=== PATIENT | female | born 1945 | race Caucasian/White ===

== ENCOUNTER → 2017-03-23 | Outpatient (CLI) | payer OTHER ==
[~2017-03-23] MED LIST: ASPIRIN81 M2 PO; ATENOLOL 50MG T50 M1 PO; GLUCOPHAGE1000 MG PO; HYDROCHLOROTHIA25 M2 PO; IBUPROFEN 800800 M1 PO; LEVOTHYROXIN0.125 M1 PO; LIPITOR 20 MG T20 M1 PO; LOTRISONE CREAM15 GM TOP; NEURONTIN 300300 M1 PO; OMEPRAZOLE40 MG PO; POTASSIUM20 PO; SORINE 80 MG TA80 M1 PO; VENLAFAXINE HC100 MG PO; XARELTO20 MG PO
[2017-03-23 08:56] LABS: INR 1.2; PROTIME 12.1 Seconds (9.20-11.50)
== END ==
LOC: M.LAB 06:30
PROVIDERS: Anesthesiology
DX: Z01.812 Encounter for preprocedural laboratory examination (principal); E11.9 Type 2 diabetes mellitus without complications; Z79.01 Long term (current) use of anticoagulants

== ENCOUNTER → 2018-01-24 | Outpatient (CLI) | payer OTHER | LOC: M.RAD 09:07 | DX: Z12.31 Encounter for screening mammogram for malignant neoplasm of breast (principal) ==

== ENCOUNTER 2018-05-21 09:08 | Inpatient (IN) | payer OTHER ==
[~2018-05-21] VITALS: Ht 203.2 cm; Wt 121.1 kg
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
--- NOTE | ~2018-05-21 | PROC ---
[address] [address] PROCEDURE REPORT Name: DRAKE PEREZ Room: [address] IN M.R.#: [id number] Admission: 05/21/18 Attend Phys: Yenny Negro Discharge: Date of : 49 Report #: [id number] THIS REPORT FOR: //name// For GI report, please see the Provation report in Perceptive 7 content. By: [facility] Records Staff SHALINI /YOU
[2018-05-21 09:23] VITALS: BP 167/64
[2018-05-21] MEDS ORDERED: BUSPIRONE HCL10 MG PO (09:35)
[2018-05-21] MEDS ORDERED: OXYCODONE HCL10 MG PO (09:36)
[2018-05-21] MEDS ORDERED: TYLENOL325 MG PO (09:37)
[2018-05-21] MEDS ORDERED: CELEXA20 MG PO (09:38)
[2018-05-21] MEDS ORDERED: PEPCID20 MG PO (09:38)
[2018-05-21] MEDS ORDERED: COUMADIN 4 MG TA4 M1 PO (09:43)
[2018-05-21 09:44] LABS: ABSOLUTE EOSINOPHILS 0.1 thou/uL (0.0-0.7); ABSOLUTE LYMPHOCYTES 0.8 thou/uL (0.8-5.3); ABSOLUTE MONOCYTES 0.3 thou/uL (0.0-1.2); ABSOLUTE NEUTROPHILS 3.4 thou/uL (1.6-8.1); BASOPHILS 0.9 %; EOSINOPHILS 3.1 %; HEMATOCRIT 34.1 % (37.0-47.0); HEMOGLOBIN 11.2 gm/dL (12.0-15.0); LYMPHOCYTES 17.1 %; MCH 28.8 pg (26.0-34.0); MCHC 32.9 g/dL (28.0-37.0); MCV 87.4 fL (80.0-100.0); MONOCYTES 7.1 %; MPV 7.7 fl. (7.2-11.1); NUCLEATED RBCS 0 /100WBC; PLATELET COUNT* 306 thou/uL (150-400); POLYS 71.8 %; RBC 3.91 mil/uL (4.20-5.00); RDW-CV 17.8 % (10.5-14.5); WBC 4.7 thou/uL (4.0-11.0)
[2018-05-21 09:57] LABS: BE 0.3 mmol/L (-2 to +3); PCO2 34.1 mmHg (35.0-45.0); PO2 72.7 mmHg (75.0-100.0)
[2018-05-21 09:59] LABS: ALBUMIN 3.4 g/dL (3.4-5.0); MAGNESIUM 1.8 mg/dL (1.8-2.4); POTASSIUM 3.5 mmol/L (3.5-5.1); TOTAL BILIRUBIN 0.6 mg/dL (<0.1-1.0); TOTAL PROTEIN 7.1 g/dL (6.4-8.2)
[2018-05-21 10:00] LABS: INR 1.5
[2018-05-21 10:36] LABS: URINE BLOOD TRACE (Negative); URINE CLARITY CLEAR; URINE COLOR YELLOW; URINE GLUCOSE-RANDOM NEGATIVE (Negative); URINE KETONES 2+ (Negative); URINE LEUKOCYTES-REFLEX NEGATIVE (Negative); URINE NITRITE-REFLEX NEGATIVE (Negative); URINE PROTEIN NEGATIVE (Negative); URINE SPECIFIC GRAVITY 1.025 (1.005-1.030)
[2018-05-21 10:37] LABS: ICTOTEST (BILI CONFIRMATORY) Negative (Negative); URINE BILIRUBIN 1+ (Negative)
[2018-05-21 12:48] VITALS: BP 162/59
[2018-05-21 13:00] VITALS: BP 160/53
[2018-05-21 17:26] VITALS: BP 149/54
[2018-05-21 21:10] VITALS: BP 152/53
[2018-05-22] VITALS (7 sets, daily range): BP systolic 131–160; BP diastolic 40–78
[2018-05-22 11:16] LABS: ABSOLUTE EOSINOPHILS 0.2 thou/uL (0.0-0.7); ABSOLUTE LYMPHOCYTES 0.8 thou/uL (0.8-5.3); ABSOLUTE MONOCYTES 0.3 thou/uL (0.0-1.2); ABSOLUTE NEUTROPHILS 2.5 thou/uL (1.6-8.1); BASOPHILS 0.9 %; EOSINOPHILS 5.2 %; HEMATOCRIT 29.9 % (37.0-47.0); HEMOGLOBIN 9.9 gm/dL (12.0-15.0); LYMPHOCYTES 20.9 %; MCH 28.9 pg (26.0-34.0); MCHC 33.1 g/dL (28.0-37.0); MCV 87.3 fL (80.0-100.0); MONOCYTES 8.4 %; MPV 7.5 fl. (7.2-11.1); NUCLEATED RBCS 0 /100WBC; PLATELET COUNT* 240 thou/uL (150-400); POLYS 64.6 %; RBC 3.42 mil/uL (4.20-5.00); RDW-CV 18.6 % (10.5-14.5); WBC 3.9 thou/uL (4.0-11.0)
[2018-05-22 11:23] LABS: CALCIUM 8.6 mg/dL (8.5-10.1); INR 1.4; POTASSIUM 3.5 mmol/L (3.5-5.1); PROTIME 14.8 Seconds (9.20-11.50)
--- NOTE | 2018-05-22 15:50 | EKG ---
[place] [address] ELECTROCARDIOGRAM REPORT Name: JASMYN PEREZSSIE Marnie Room: [address] ADM IN M.R.#: [id number] Admission: 05/21/18 Attend Phys: Yenny Negro Discharge: Date of : 49 Report #: [id number] THIS REPORT FOR: //name// [facility] ED Test Date: 2018-05-21 Test Time: 09:57:59 Pat Name: DRAKE PEREZ Department: Room: [facility] Gender: F Temperature Control Inspector: : 1945 Requested By: Adriane Dickerson Order Number: [id number] MD: Emanuel Ma Measurements Intervals [place] Rate: 59 P: 29 ND: 178 QRS: 11 QRSD: 106 T: 92 QT: 453 QTc: 449 Interpretive Statements Sinus rhythm Borderline repolarization abnormality Compared to ECG 12/09/2014 07:38:52 Possible ischemia persists Electronically Signed On 05-22-2018 15:50:43 CDT by Emanuel Ma [email or web address] <ELECTRONICALLY SIGNED> By: Emanuel Ma MD, [facility] 05/22/18 [id number] Emanuel Ma MD, FAC /EPI
[2018-05-23 04:00] VITALS: BP 175/66
[2018-05-23 07:01] LABS: INR 1.4; PROTIME 14.3 Seconds (9.20-11.50)
[2018-05-23 07:09] VITALS: BP 152/58
[2018-05-23 17:41] VITALS: BP 143/78
[2018-05-23 20:20] VITALS: BP 149/56
[2018-05-24 04:00] VITALS: BP 151/52
[2018-05-24 07:04] VITALS: BP 148/71
[2018-05-24 15:00] VITALS: BP 153/53
--- NOTE | 2018-05-24 15:06 | PATH ---
[address] [address] PATHOLOGY RPT PROCEDURE Name: CLARISA ACHARYA Room: [address] IN .R.#: [id number] Admission: 05/21/18 Date of : 49 Discharge: Report #: [id number] Path Case #: [id number] [facility] Accession Number: [id number] . 01 Material submitted: . GASTRIC BIOPSIES FOR H PYLORI . 01 Clinical history: . None provided. . 02 Diagnosis: Gastric biopsy: - Mild nonspecific chronic gastritis, negative for Helicobacter pylori organisms and dysplasia. (ALEXUS:lina; 05/24/2018) . Special stain: H. pylori immuno MBR/05/24/2018 . 02 Electronically signed: . Louis Kovacs MD, Pathologist NPI- [id number] . 01 Gross description: . Received in formalin labeled "Clarisa Acharya, gastric biopsy for H. pylori" are two fragments of hooker-brown mucosa measuring in aggregate 0.6 x 0.6 x 0.2 cm. The specimen is submitted in cassette A1. ([facility]; 05/23/2018) SYC/SYC . 02 Pathologist provided ICD-10: K29.50 . 02 CPT . 485087, T24557 Specimen Comment: A courtesy copy of this report has been sent to Specimen Comment: [phone], , . Specimen Comment: Report sent to ,DR DEL ROSARIO / DR FRAKN Performed at: [address], [place] [id number] MD Elton Grimes MD Phone: [phone] Performed at: 02 [facility] [address], [place], [place] [id number] MD Louis Kovacs MD Phone: [phone]
[2018-05-24 20:00] VITALS: BP 150/46
[2018-05-25 03:56] LABS: HEMATOCRIT 28.9 % (37.0-47.0); HEMOGLOBIN 9.7 gm/dL (12.0-15.0); MCH 29.3 pg (26.0-34.0); MCHC 33.5 g/dL (28.0-37.0); MCV 87.4 fL (80.0-100.0); MPV 8.1 fl. (7.2-11.1); RBC 3.3 mil/uL (4.20-5.00); RDW-CV 17.8 % (10.5-14.5); WBC 4.2 thou/uL (4.0-11.0)
[2018-05-25 04:20] LABS: INR 1.4; PROTIME 14.8 Seconds (9.20-11.50)
[2018-05-25 04:30] LABS: CALCIUM 8.7 mg/dL (8.5-10.1); CREATININE 0.9 mg/dL (0.6-1.3); POTASSIUM 3.3 mmol/L (3.5-5.1)
[2018-05-25 07:55] VITALS: BP 151/62
[2018-05-25 17:02] VITALS: BP 145/53
[2018-05-25 20:20] VITALS: BP 145/55
[2018-05-26 04:03] LABS: HEMATOCRIT 31.7 % (37.0-47.0); HEMOGLOBIN 10.5 gm/dL (12.0-15.0); MCH 28.9 pg (26.0-34.0); MCHC 33.3 g/dL (28.0-37.0); MCV 86.8 fL (80.0-100.0); MPV 8.2 fl. (7.2-11.1); RBC 3.65 mil/uL (4.20-5.00); RDW-CV 18.1 % (10.5-14.5); WBC 4.3 thou/uL (4.0-11.0)
[2018-05-26 04:16] LABS: INR 1.5; PROTIME 15.1 Seconds (9.20-11.50)
[2018-05-26 04:39] LABS: CALCIUM 8.9 mg/dL (8.5-10.1); POTASSIUM 3.4 mmol/L (3.5-5.1)
[2018-05-26 08:25] VITALS: BP 138/54
[2018-05-26 16:37] VITALS: BP 117/64
[2018-05-26 20:00] VITALS: BP 126/62
[2018-05-27 04:19] LABS: ABSOLUTE EOSINOPHILS 0.2 thou/uL (0.0-0.7); ABSOLUTE MONOCYTES 0.4 thou/uL (0.0-1.2); ABSOLUTE NEUTROPHILS 2.7 thou/uL (1.6-8.1); BASOPHILS 0.7 %; EOSINOPHILS 3.6 %; HEMATOCRIT 33.4 % (37.0-47.0); LYMPHOCYTES 23.7 %; MCH 28.8 pg (26.0-34.0); MCHC 32.9 g/dL (28.0-37.0); MCV 87.7 fL (80.0-100.0); MONOCYTES 10.1 %; MPV 8.7 fl. (7.2-11.1); NUCLEATED RBCS 0 /100WBC; PLATELET COUNT* 189 thou/uL (150-400); POLYS 61.9 %; RDW-CV 17.9 % (10.5-14.5); WBC 4.4 thou/uL (4.0-11.0)
[2018-05-27 04:25] LABS: ALBUMIN 2.9 g/dL (3.4-5.0); CALCIUM 8.9 mg/dL (8.5-10.1); POTASSIUM 3.2 mmol/L (3.5-5.1); TOTAL BILIRUBIN 0.4 mg/dL (<0.1-1.0); TOTAL PROTEIN 5.9 g/dL (6.4-8.2)
[2018-05-27 05:35] LABS: ESR (SEDRATE) 27 mm/hr (0-30)
[2018-05-27 07:30] VITALS: BP 137/61
[2018-05-27 13:02] LABS: INR 1.7; PROTIME 17.6 Seconds (9.20-11.50)
[2018-05-27 18:53] VITALS: BP 130/76
[2018-05-27 20:30] VITALS: BP 139/60
[2018-05-28 05:34] LABS: INR 1.8; PROTIME 18.1 Seconds (9.20-11.50)
[2018-05-28 07:11] VITALS: BP 143/65
[2018-05-28] MEDS ORDERED: HYDROCODONE-AP1 EAC6 PO (09:14)
[2018-05-28] MEDS ORDERED: SYNTHROID150 MCG PO (09:14)
[2018-05-28] MEDS ORDERED: ONDANSETRON HCL4 M2 PO (09:14)
[2018-05-28 10:07] VITALS: BP 143/65
[2018-05-28 11:18] VITALS: BP 143/65
[2018-05-28 11:29] VITALS: BP 143/65
[2018-05-28 13:44] VITALS: BP 143/65
== END 2018-05-28 13:40 | disposition home health service (06) | DRG 391 ==
LOC: M.ERS 09:08 → M.TBA-ER 11:35 → M.3W 11:35
PROVIDERS: Family Medicine; Internal Medicine; Internal Medicine Gastroenterology; Nurse Practitioner Adult Health; Personal Emergency Response Attendant; ADMIT Internal Medicine
PROC: 0DB68ZX Excision of Stomach, Via Natural or Artificial Opening Endoscopic, Diagnostic (ICD-10-PCS; principal; 2018-05-23)
DX: K31.84 Gastroparesis (principal); G93.41 Metabolic encephalopathy; D68.69 Other thrombophilia; R82.4 Acetonuria; R14.2 Eructation; I10 Essential (primary) hypertension; E11.9 Type 2 diabetes mellitus without complications; E03.9 Hypothyroidism, unspecified; R00.1 Bradycardia, unspecified; R68.81 Early satiety; I48.0 Paroxysmal atrial fibrillation; E78.00 Pure hypercholesterolemia, unspecified; E87.6 Hypokalemia; D64.9 Anemia, unspecified; T40.605A Adverse effect of unspecified narcotics, initial encounter; Y92.89 Other specified places as the place of occurrence of the external cause; Z87.81 Personal history of (healed) traumatic fracture; Z90.49 Acquired absence of other specified parts of digestive tract; Z90.710 Acquired absence of both cervix and uterus; Z79.01 Long term (current) use of anticoagulants; Z79.899 Other long term (current) drug therapy; Z88.1 Allergy status to other antibiotic agents; Z88.0 Allergy status to penicillin; Z88.8 Allergy status to other drugs, medicaments and biological substances; Z80.3 Family history of malignant neoplasm of breast

== ENCOUNTER → 2018-12-02 | Outpatient (CLI) | payer OTHER ==
[~2018-12-02] MED LIST changes: +BUSPIRONE HCL10 MG PO; +CELEXA20 MG PO; +COUMADIN 4 MG TA4 M1 PO; +HYDROCODONE-AP1 EAC6 PO; +ONDANSETRON HCL4 M2 PO; +OXYCODONE HCL10 MG PO; +PEPCID20 MG PO; +SYNTHROID150 MCG PO; +TYLENOL325 MG PO
== END ==
LOC: M.ULTRA 09:26
DX: N18.3 Chronic kidney disease, stage 3 (moderate) (principal)

== ENCOUNTER → 2019-01-30 | Outpatient (CLI) | payer OTHER | LOC: M.RAD 13:54 | DX: Z12.31 Encounter for screening mammogram for malignant neoplasm of breast (principal) ==

== ENCOUNTER → 2019-12-19 | Outpatient (CLI) | payer OTHER | LOC: M.ULTRA 07:55 | PROVIDERS: ATTEND Internal Medicine Nephrology | DX: K76.0 Fatty (change of) liver, not elsewhere classified (principal); Z90.49 Acquired absence of other specified parts of digestive tract ==

== ENCOUNTER → 2020-02-03 | Outpatient (CLI) | payer OTHER | LOC: M.RAD 09:00 | PROVIDERS: ATTEND Family Medicine | DX: Z12.31 Encounter for screening mammogram for malignant neoplasm of breast (principal) ==

== ENCOUNTER → 2020-03-24 | Outpatient (CLI) | payer OTHER | LOC: M.RAD 09:00 | PROVIDERS: ATTEND Nurse Practitioner Family | DX: Z78.0 Asymptomatic menopausal state (principal) ==